=== PATIENT | male | born 1955 | race Caucasian/White ===

== ENCOUNTER 2018-09-17 10:47 | Outpatient (CLI) | payer MEDICARE ==
--- NOTE | 2018-09-17 12:02 | CT ---
CT ABDOMEN AND PELVIS NONCONTRAST: History: Hematuria. Flank pain. Prior left nephrectomy. FINDINGS: Left kidney is surgically absent. Right kidney is compensatorily enlarged. The renal collecting syste m, ureter, and urinary bladder are decompressed without stone apparent. Lack of contrast decreases sensitivity of the exam for other abnormalities. Liver is predominately hy podense with areas of more normal densities scattered in geographic distribution, consistent with fat ty sparring. In the left upper quadrant, the spleen is surgically absent. A homogeneous well circumsc ribed splenic density mass likely represents a splenial remnant. No evidence of bowel obstruction. De generative changes lumbar spine. IMPRESSION: 1. No evidence of right urinary tract obstruction or calcification. Left kidney is surgically absent. Cause for hematuria is not apparent. 2. Hepatosteatosis. POS: JONATHANH
== END 2018-09-17 10:48 | disposition home or self-care (01) ==
LOC: BICCT 10:47
PROVIDERS: ATTEND Obstetrics & Gynecology
DX: R31.0 Gross hematuria (principal); K76.0 Fatty (change of) liver, not elsewhere classified; Z90.5 Acquired absence of kidney
CPT/HCPCS: 74176

== ENCOUNTER 2019-09-13 12:31 | Outpatient (CLI) | payer MEDICARE ==
[2019-09-13] MEDS ORDERED: Iopamidol 370 76% 100 ML VIAL ONE (13:55)
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
== END 2019-09-13 12:32 | disposition home or self-care (01) ==
LOC: CT 12:31
PROVIDERS: ATTEND Family Medicine
DX: R31.0 Gross hematuria (principal); N32.89 Other specified disorders of bladder; Z90.81 Acquired absence of spleen; Z90.5 Acquired absence of kidney
CPT/HCPCS: 74178; Q9967

== ENCOUNTER 2019-10-06 14:39 | Outpatient (CLI) | payer MEDICARE ==
[2019-10-06 15:45] LABS: Hemoglobin 14.4 g/dL (14.0-18.0); Mean Corpuscular HGB CONC 34.3 g/dL (32.0-36.0); Mean Corpuscular Hemoglobin 32.6 pg (27.0-31.0); Mean Corpuscular Volume 95.2 fL (78.0-98.0); Mean Platelet Volume 9.1 fL (7.4-10.4); Platelet Count 304 thou/uL (130-400); RBC Distribution Width 12.4 % (11.5-14.5); White Blood Cell (WBC) Count 11.3 thou/uL (4.8-10.8)
[2019-10-06 15:52] LABS: PTT 25.9 SEC (22.9-36.1); Prothrombin Time 12.7 SEC (12.0-14.7)
[2019-10-06 16:20] LABS: Anion Gap 19 mmol/L (10-20); BUN (Urea Nitrogen) 14 mg/dL (8.4-25.7); Calc. Creatinine Clearance 0 mL/min (70-130); Calcium 9.1 mg/dL (7.8-10.44); Carbon Dioxide 21 mmol/L (23-31); Chloride 105 mmol/L (98-107); Estimated GFR-MDRD 71; Glucose 170 mg/dL (80-115); Potassium 4.2 mmol/L (3.5-5.1); Sodium 141 mmol/L (136-145)
== END 2019-10-06 14:40 | disposition home or self-care (01) ==
LOC: LABBT 14:39
PROVIDERS: ATTEND Urology
DX: Z01.818 Encounter for other preprocedural examination (principal); N32.89 Other specified disorders of bladder; E11.9 Type 2 diabetes mellitus without complications; Z72.0 Tobacco use
CPT/HCPCS: 80048; 81001; 85027; 85610; 85730; 93005; 93010

== ENCOUNTER 2019-10-14 06:43 | Day surgery (SDC) | payer MEDICARE ==
[2019-10-06 14:51] VITALS: BMI 33.2
[2019-10-14] MEDS ORDERED: Levofloxacin 500 mg/D5W 100 ml Premix Bag ONE (10:01)
[2019-10-14] MEDS ORDERED: B & O ONE (10:11)
[2019-10-14] MEDS ORDERED: Iothalamate Meglumine 60% 50 ML VIAL FS ONE (10:11)
[2019-10-14] MEDS ORDERED: Fentanyl 100 MCG/2 ML VIAL ONE (10:14)
[2019-10-14] MEDS ORDERED: mitoMYcin 40 MG in Water For Injection,Sterile 20 ML FS SCH (10:15)
[2019-10-14] MEDS ORDERED: Succinylcholine Chloride 20 MG/ML 10 ml SYRINGE FS ONE (10:32)
[2019-10-14] MEDS ORDERED: Lidocaine 1% PF 5 ML VIAL ONE (10:32)
[2019-10-14] MEDS ORDERED: PHENYLEPHRINE-NS 100 MCG/ML 10 ML SYRINGE ONE (10:32)
[2019-10-14] MEDS ORDERED: Metoclopramide HCl 10 MG/2 ML VIAL ONE (10:32)
[2019-10-14] MEDS ORDERED: PROPOFOL 200 MG/20 ML VIAL ONE (10:32)
[2019-10-14] MEDS ORDERED: Rocuronium Bromide 10 MG/ML (10ML VIAL) ONE (10:32)
[2019-10-14] MEDS ORDERED: Glycopyrrolate 0.2 MG/ML 5 ML SYRINGE ONE (10:32)
[2019-10-14] MEDS ORDERED: Ondansetron PF 4 MG/2 ML Vial ONE (10:32)
--- NOTE | 2019-10-14 12:23 | OP ---
DATE OF PROCEDURE: 10/14/2019 SERVICES: Urology. PREOPERATIVE DIAGNOSIS: Bladder cancer. POSTOPERATIVE DIAGNOSIS: Bladder cancer. PROCEDURE PERFORMED: Transurethral resection of bladder tumor with total volume greater than 5 cm. Instillation of mitomycin-C. INDICATIONS FOR PROCEDURE: Mr. French is a 64-year-old white male, who presented with a several month history of gross hematuria. Cystoscopy demonstrated multifocal overlapping bladder cancers with the largest tumor on the left lateral bladder wall measuring almost 4 cm in size. There was an additional 1 to 2 cm of additional tumors located throughout the bladder for a total of 7 tumors in total. I discussed resection of all of these tumors with instillation of postop mitomycin-C with all risks and benefits discussed. He has agreed to proceed forward. DESCRIPTION OF PROCEDURE: After identification of armband and verification of consent, patient was brought back to the operating room. He underwent general anesthesia with endotracheal intubation and full paralysis. He was then placed in a dorsal lithotomy position and prepped and draped in usual sterile fashion. After appropriate time-out, a lubricated 26-Malawian resectoscope sheath with visual obturator was passed through urethra and prostate into the bladder where the tumor was noted and was found to be actively bleeding. The visual obturator was switched out for the bipolar bladder resectoscope loop. Resection was initially started on the bleeding aspects of the large tumor on the left lateral bladder wall. Once the majority of the tumor had been resected, the bladder was somewhat decompressed and insurance that full paralysis was on board, then resection of the bladder tumor base was performed until detrusor muscles were visible. This was then all collected and sent off for routine pathologic evaluation as a large left bladder wall tumor. After that, the additional tumors were then resected on the trigone, on both sides, a very small one near the left ureteral orifice and a larger one near the right ureteral orifice. A posterior bladder wall tumor and 3 tumors located on the bladder neck anteriorly that were previously noted on cystoscopy. Upon completion, there was excellent hemostasis in all sites. Significant fulguration was performed of all resection sites to ensure adequate hemostasis. All tumor chips were evacuated and sent off for routine pathologic evaluation. Final cystoscopy did not demonstrate any additional tumors. The cystoscope was then switched out for a 70-degree lens with a 22-Malawian rigid cystoscope introduced back into the bladder for a repeat cystoscopy with a 70-degree lens to insurance there were no other tumors on the bladder neck and none were encountered. Nothing else was seen in the bladder. The bladder was left full and the cystoscope removed. An 18-Malawian Ken catheter was placed with ease into the bladder and 10 mL of sterile water placed into the balloon. This was then left to gravity drainage until the bladder was emptied. 40 mg of mitomycin-C in 20 mL of water was instilled into the bladder with a catheter plug placed. The patient had B and O suppository placed in his rectum, was taken out of positioning, awakened, taken to PACU for recovery in stable condition. COMPLICATIONS: None. ESTIMATED BLOOD LOSS: Minimal. RETAINED TUBES AND DRAINS: An 18-Malawian Ken catheter. SPECIMENS: Bladder tumor in two separate containers. The first being the left lateral bladder wall tumor which measured about 4 cm and the second specimen being the remaining bladder tumors scattered throughout the bladder. DISPOSITION: After mitomycin-C sits for an hour, we will have the catheter removed. The patient will undergo a void trial and then be discharged home with followup on an outpatient basis to discuss his pathology report and future plans and surveillance. Job ID: [id number]
== END 2019-10-14 15:32 | disposition home or self-care (01) ==
LOC: SDC 06:43
PROVIDERS: ATTEND Urology
PROC: 0TBB8ZZ Excision of Bladder, Via Natural or Artificial Opening Endoscopic (ICD-10-PCS; principal; 2019-10-14)
DX: C67.2 Malignant neoplasm of lateral wall of bladder (principal); I10 Essential (primary) hypertension; E11.9 Type 2 diabetes mellitus without complications; E78.5 Hyperlipidemia, unspecified; F17.290 Nicotine dependence, other tobacco product, uncomplicated; Z79.82 Long term (current) use of aspirin; Z79.84 Long term (current) use of oral hypoglycemic drugs; Z79.899 Other long term (current) drug therapy
CPT/HCPCS: 88307; J1956; J2001; J2405; J2704; J2765; J3010; J9280

== ENCOUNTER 2020-08-28 07:02 | Outpatient (CLI) | payer MEDICARE ==
[2020-08-28 14:27] LABS: Hemoglobin 14.4 g/dL (14.0-18.0); Mean Corpuscular HGB CONC 31.7 G/DL (32.0-36.0); Mean Corpuscular Volume 97.8 fl (80.0-100.0); Mean Platelet Volume 11.8 fl (7.4-10.4); Platelet Count 313 10x3/uL (130-400); RBC Distribution Width 13.2 % (11.5-14.5); Red Blood Cell (RBC) Count 4.64 10x6/uL (4.40-5.80); White Blood Cell (WBC) Count 13.2 10x3/uL (4.5-11.0)
[2020-08-28 14:55] LABS: PTT 27.1 sec (22.0-33.0); Prothrombin Time 10.3 sec (9.5-12.1)
[2020-08-28 14:57] LABS: Anion Gap 17 mmol/L (10-20); BUN (Urea Nitrogen) 23 mg/dL (8.4-25.7); Calc. Creatinine Clearance 0 mL/min (70-130); Carbon Dioxide 27 mmol/L (23-31); Chloride 100 mmol/L (98-107); Glucose 214 mg/dL (80-115); Potassium 4.8 mmol/L (3.5-5.1); Sodium 139 mmol/L (136-145)
[2020-08-28 15:18] LABS: Bilirubin 1+ (Negative); Blood, Urine Negative (Negative); Clarity Clear (Clear); Glucose, Urine (Dipstick) 50 mg/dL (Negative); Ketone, Urine 5 mg/dL (Negative); Leukocyte 25 (Negative); Nitrite Negative (Negative); Protein, Urine (Dipstick) 15 mg/dl (Neg-Trace); Specific Gravity, Urine 1.025 (1.002-1.036); Urobilinogen Normal mg/dL (Less than 2)
[2020-08-28 15:57] LABS: Bacteria/HPF 1+ HPF (None Seen); RBC/HPF 0-3 HPF (0-3); Squamous Epithelial 0-3 HPF (0-3)
--- NOTE | 2020-08-28 17:57 | EKG ---
Test Reason : Blood Pressure : / mmHG Vent. Rate : 097 BPM Atrial Rate : 097 BPM P-R Int : 186 ms QRS Dur : 086 ms QT Int : 342 ms P-R-T Axes : 050 048 054 degrees QTc Int : 434 ms Normal sinus rhythm Normal ECG No previous ECGs available Confirmed by DR. Andrés WILLETT ([id number]) on 08/28/2020 5:57:13 PM Referred By: LISA Confirmed By:DR. Andrés WILLETT
[2020-08-29 07:04] LABS: SARS-CoV-2 PCR by NAA Not Detected (NotDetected)
== END 2020-08-28 07:03 | disposition home or self-care (01) ==
LOC: LABBT 07:02
PROVIDERS: ATTEND Urology
DX: Z01.818 Encounter for other preprocedural examination (principal); C67.8 Malignant neoplasm of overlapping sites of bladder; R30.0 Dysuria; Z72.0 Tobacco use; E11.9 Type 2 diabetes mellitus without complications; Z20.822 Contact with and (suspected) exposure to COVID-19
CPT/HCPCS: 80048; 81001; 85027; 85610; 85730; 87086; 93005; U0003; U0005; 87635; 93010

== ENCOUNTER 2020-08-31 08:07 | Day surgery (SDC) | payer MEDICARE ==
[2020-08-29 10:19] VITALS: BMI 32.8
[2020-08-31] MEDS ORDERED: Levofloxacin 500 mg/D5W 100 ml Premix Bag ONE (08:51)
[2020-08-31] MEDS ORDERED: mitoMYcin 40 MG in Sterile Water 20 ML I-VESIC SCH (09:15)
[2020-08-31] MEDS ORDERED: PHENYLEPHRINE-NS 100 MCG/ML 10 ML SYRINGE ONE (10:20)
[2020-08-31] MEDS ORDERED: PROPOFOL 200 MG/20 ML VIAL ONE (10:20)
[2020-08-31] MEDS ORDERED: Ondansetron PF 4 MG/2 ML Vial ONE (10:20)
[2020-08-31] MEDS ORDERED: Lidocaine 1% PF 5 ML VIAL ONE (10:20)
[2020-08-31] MEDS ORDERED: Dexamethasone 20 MG/5 ML VIAL ONE (10:20)
[2020-08-31] MEDS ORDERED: Fentanyl 100 MCG/2 ML VIAL ONE (11:37)
[2020-08-31] MEDS ORDERED: B & O ONE (12:25)
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
== END 2020-08-31 14:42 | disposition home or self-care (01) ==
LOC: SDC 08:07
PROVIDERS: ATTEND Urology
PROC: 0T5B8ZZ Destruction of Bladder, Via Natural or Artificial Opening Endoscopic (ICD-10-PCS; principal; 2020-08-31)
DX: C67.6 Malignant neoplasm of ureteric orifice (principal); I10 Essential (primary) hypertension; E78.5 Hyperlipidemia, unspecified; E11.9 Type 2 diabetes mellitus without complications; Z79.82 Long term (current) use of aspirin; Z79.899 Other long term (current) drug therapy; Z87.891 Personal history of nicotine dependence
CPT/HCPCS: 52234; 82962; J9280; 36416; 88307; J1100; J1956; J2405; J2704; J3010

== ENCOUNTER 2023-05-09 08:32 | Outpatient (CLI) | payer MEDICARE | END 2023-05-09 08:33 | disposition home or self-care (01) | LOC: BICULT 08:32 | PROVIDERS: ATTEND Registered Nurse | DX: Z13.6 Encounter for screening for cardiovascular disorders (principal) | CPT/HCPCS: 76775 ==